=== PATIENT | male | born 1975 | race Caucasian/White ===

== ENCOUNTER → 2016-05-29 | Outpatient (CLI) | payer OTHER ==
[~2016-05-29] MED LIST: ADULT LOW DOSE81 MG PO; ASPIRIN81 MG PO; BASAGLAR SQ; BRILINTA90 MG PO; CLEOCIN HCL300 MG PO; DAKIN'S SOLUTI500 ML TOP; ELAVIL 25 MG TA25 MG PO; HUMALOG100 UNIT/1 SQ; INVANZ1 GM IV; LANTUS SOL100 UNIT/1 SC; LIPITOR TAB 2020 MG PO; LOPRESSOR 25 MG25 MG PO; MIDODRINE HCL5 MG PO; NEURONTIN 400400 MG PO; NOVOLOG 10100 UNITS/ SC; PERCOCET 5-3251 EACH PO; PRAVACHOL20 MG PO; TAPAZOLE 10 MG10 MG PO; TRAMADOL HCL50 MG PO; VANCOMYCIN HCL1 GM IV; VITAMIN B-121000 MCG PO; VITAMIN D250000 UNIT PO; ZESTRIL2.5 MG PO; ZOFRAN4 MG PO
== END ==
LOC: KOH-I 08:00
DX: D69.6 Thrombocytopenia, unspecified (principal); R05 Cough; R16.1 Splenomegaly, not elsewhere classified; R91.8 Other nonspecific abnormal finding of lung field
CPT/HCPCS: 71020; 76700; 76705

== ENCOUNTER → 2016-06-29 | Outpatient (CLI) | payer OTHER | LOC: RAD 10:42 | DX: M54.5 Low back pain (principal); M54.2 Cervicalgia; G89.4 Chronic pain syndrome; M50.823 Other cervical disc disorders at C6-C7 level | CPT/HCPCS: 72040; 72100 ==

== ENCOUNTER → 2016-07-24 | Outpatient (CLI) | payer OTHER | LOC: CT 07-14 10:30 | DX: R16.1 Splenomegaly, not elsewhere classified (principal); D69.59 Other secondary thrombocytopenia | CPT/HCPCS: 36415; 80074; 80076; 82103; 82565; 82728; 83540; 83550; 84520; 86039; 86255; J7050; Q9962 ==

== ENCOUNTER 2020-04-17 00:46 | Inpatient (IN) | payer OTHER ==
[~2020-04-17] VITALS: Ht 190.5 cm; Wt 67.8 kg
[~2020-04-17 00:46] MED LIST changes: +ADMELOG SO100 UNIT/1 SQ; +ADMELOG100 UNIT/1 SQ; +ASPIRIN CHEWABL81 MG PO; +BACTRIM DS TAB1 EACH PO; +BASAGLAR K100 UNIT/1 SQ; -BASAGLAR SQ; +CIPRO500 MG PO; +CRESTOR20 MG PO; +DEX4 GLUCOSE4 GM PO; +FLEXERIL 10 MG10 MG PO; +GABAPENTIN800 MG PO; +HUMALOG 10100 UNITS/ SC; -HUMALOG100 UNIT/1 SQ; +IBUPROFEN800 MG PO; +INVANZ 1 GM VIAL1 GM IV; +LANTUS100 UNIT/1 SC; +LEVOFLOXACIN250 MG PO; +LORTAB 7.5-3251 EACH PO; +MOBIC7.5 MG PO; +NORCO 5-325 TA1 EACH PO; +ULTRAM50 MG PO; +VITAMIN C 500500 MG PO; +VOLTAREN100 GM TP
[2020-04-17 01:35] LABS: HEMOGLOBIN 13.1 gm/dl (14.0-17.5); RED BLOOD COUNT 5.18 M/UL (4.20-5.50); WHITE BLOOD COUNT 29.3 K/UL (4.5-11.0)
[2020-04-17 01:46] LABS: BUN/CREATININE RATIO 33 (0-10)
[2020-04-17 09:26] LABS: HEMOGLOBIN 12.3 gm/dl (14.0-17.5); RED BLOOD COUNT 4.69 M/UL (4.20-5.50); WHITE BLOOD COUNT 19.6 K/UL (4.5-11.0)
[2020-04-17] MEDS ORDERED: BASAGLAR K100 UNIT/1 SQ (11:43)
[2020-04-17 13:12] LABS: BUN/CREATININE RATIO 39 (0-10)
[2020-04-17 16:56] LABS: BUN/CREATININE RATIO 43 (0-10)
[2020-04-18 06:10] LABS: WHITE BLOOD COUNT 20.1 K/UL (4.5-11.0)
[2020-04-18 06:13] LABS: HEMOGLOBIN 10.2 gm/dl (14.0-17.5); RED BLOOD COUNT 3.95 M/UL (4.20-5.50)
[2020-04-18 09:03] LABS: HEMOGLOBIN 11.8 gm/dl (14.0-17.5)
[2020-04-18 09:09] LABS: RED BLOOD COUNT 4.54 M/UL (4.20-5.50)
[2020-04-18 09:10] LABS: BUN/CREATININE RATIO 35 (0-10)
[2020-04-19 05:11] LABS: HEMOGLOBIN 11.5 gm/dl (14.0-17.5); RED BLOOD COUNT 4.49 M/UL (4.20-5.50)
[2020-04-19 05:15] LABS: WHITE BLOOD COUNT 11.3 K/UL (4.5-11.0)
[2020-04-19 05:42] LABS: BUN/CREATININE RATIO 14 (0-10)
[2020-04-20 04:51] LABS: HEMOGLOBIN 10.5 gm/dl (14.0-17.5); RED BLOOD COUNT 4.1 M/UL (4.20-5.50)
[2020-04-20 05:05] LABS: WHITE BLOOD COUNT 6.4 K/UL (4.5-11.0)
[2020-04-20 05:28] LABS: BUN/CREATININE RATIO 18 (0-10)
[2020-04-20] MEDS ORDERED: ZYVOX600 MG PO (09:28)
[2020-04-20] MEDS ORDERED: NOVOLOG FL100 UNIT/1 INJ (09:28)
[2020-04-20] MEDS ORDERED: BASAGLAR K100 UNIT/1 SQ (09:28)
== END 2020-04-20 11:08 | disposition home or self-care (01) | DRG 853 ==
LOC: ER1 00:46 → CCU 04:36 → CDU 04:36 → CCU 09:53
PROVIDERS: Emergency Medicine; Internal Medicine; Internal Medicine Pulmonary Disease; ADMIT Family Medicine
PROC: 0BH17EZ Insertion of Endotracheal Airway into Trachea, Via Natural or Artificial Opening (ICD-10-PCS; 2020-04-17)
PROC: 5A1945Z Respiratory Ventilation, 24-96 Consecutive Hours (ICD-10-PCS; 2020-04-17)
PROC: 0JBR0ZZ Excision of Left Foot Subcutaneous Tissue and Fascia, Open Approach (ICD-10-PCS; principal; 2020-04-20)
DX: A41.02 Sepsis due to Methicillin resistant Staphylococcus aureus (principal); E10.10 Type 1 diabetes mellitus with ketoacidosis without coma; R65.21 Severe sepsis with septic shock; G93.41 Metabolic encephalopathy; Z20.822 Contact with and (suspected) exposure to COVID-19; J96.01 Acute respiratory failure with hypoxia; J15.212 Pneumonia due to Methicillin resistant Staphylococcus aureus; N17.9 Acute kidney failure, unspecified; E87.1 Hypo-osmolality and hyponatremia; I85.10 Secondary esophageal varices without bleeding; L03.116 Cellulitis of left lower limb; T39.095A Adverse effect of salicylates, initial encounter; E86.0 Dehydration; D69.6 Thrombocytopenia, unspecified; E88.09 Other disorders of plasma-protein metabolism, not elsewhere classified; F17.210 Nicotine dependence, cigarettes, uncomplicated; E10.40 Type 1 diabetes mellitus with diabetic neuropathy, unspecified; R16.1 Splenomegaly, not elsewhere classified; I25.10 Atherosclerotic heart disease of native coronary artery without angina pectoris; E83.39 Other disorders of phosphorus metabolism; F10.10 Alcohol abuse, uncomplicated; E10.621 Type 1 diabetes mellitus with foot ulcer; L97.529 Non-pressure chronic ulcer of other part of left foot with unspecified severity; K74.60 Unspecified cirrhosis of liver; E03.9 Hypothyroidism, unspecified; Z89.411 Acquired absence of right great toe; Z83.3 Family history of diabetes mellitus; Z95.5 Presence of coronary angioplasty implant and graft; Z79.4 Long term (current) use of insulin; Z79.899 Other long term (current) drug therapy
CPT/HCPCS: 0240U; 31500; 36415; 36600; 71045; 73630; 80048; 80053; 80202; 80307; 81001; 82009; 82550; 82553; 82803; 82962; 83605; 83615; 83690; 83735; 83874; 83880; 84100; 84132; 84439; 84443; 84484; 85025; 85610; 85652; 85730; 86140; 87040; 87070; 87077; 87081; 87086; 87186; 87205; 93005; 94002; 96365; 96366; 96367; 96368; 96375; 96376; 99285; C9113; G0480; J1650; J2185; J2250; J3370; J3480; J7030; J7070; J7120